=== PATIENT | female | born 1935 | race Two or more races ===

== ENCOUNTER 2019-11-24 09:06 | Inpatient (IN) | payer SELFPAY ==
[~2019-11-24] VITALS: Ht 149.9 cm; Wt 46.7 kg
[2019-11-24 09:24] VITALS: Ht 149.9 cm; Wt 46.7 kg
--- NOTE | 2019-11-24 09:38 | NUR ---
PT BIB DAUGHTER C/O LEFT HIP PAIN S/P FALL 0200. PER PT "I FELL OUT OF MY BED AND I THINK I HIT MY HEAD". PT DENIES ANY ALOC N/V/D OR FURTHER INJURY AT THIS TIME. PT IS AAOX4, RESP E/U, GERMAN SPEAKING. MD QUINTANILLA BEDSIDE FOR EVAL. SIDE RAILS UP X2 FOR SAFTEY. PLEACED ON FULL CM, NSR NOTED. AWAITING FURTHER ORDERS.
[2019-11-24 09:48] LABS: BASOPHIL % 0.1 % (0-2); PLATELET COUNT 250 x10^3mcL (130-400)
--- NOTE | 2019-11-24 09:54 | NUR ---
MEDICATED PT PER MD ORDERS, PLEASE SEE EMR. WILL CONTINUE TO MONITOR.
--- NOTE | 2019-11-24 09:54 | NUR ---
XRAY AT BEDSIDE FOR XRAY OF CHEST AND LEFT HIP. WILL CONTINUE TO MONITOR.
[2019-11-24 10:28] LABS: ALBUMIN 4.1 g/dL (3.4-5.0); ALKALINE PHOSPHATASE 59 U/L (46-116); ALT/SGPT 35 U/L (14-59); AST/SGOT 17 U/L (15-37); CALCIUM 8.9 mg/dL (8.5-10.1); CARBON DIOXIDE 23.9 mmol/L (21-32); CHLORIDE SERUM 86 mmol/L (98-107); CREATININE SERUM 0.9 mg/dL (0.6-1.0); GLUCOSE SERUM 259 mg/dL (74-106); TOTAL PROTEIN, SERUM 7.7 g/dL (6.4-8.2)
[2019-11-24 10:39] LABS: SODIUM SERUM 120 mmol/L (136-145)
[2019-11-24] MEDS ORDERED: FORTAMET500 M1 PO (11:24)
--- NOTE | 2019-11-24 11:29 | NUR ---
PT NOTED SLEEPING IN POSITION OF COMFORT IN ER GURNEY, RESP E/U, VSS, WILL CONTINUE TO MONITOR.
[2019-11-24 11:43] LABS: MAGNESIUM 1.6 mg/dL (1.8-2.4); PHOSPHOROUS 3.3 mg/dL (2.5-4.9)
[2019-11-24 11:45] LABS: T3 TOTAL 0.82 ng/mL
[2019-11-24 11:46] LABS: CHOLESTEROL/HDL RATIO 4.1
[2019-11-24 11:50] LABS: FREE T4 1.09 ng/dL (0.76-1.46); FREE THYROXINE INDEX 2.5 ug/dL (1.4-4.5); T4(THYROXINE) 7.6 ug/dL (4.7-13.3)
[2019-11-24] MEDS ORDERED: [UNRECOGNIZED DRUG - OTHER] IO (12:18)
[2019-11-24] MEDS ORDERED: [UNRECOGNIZED DRUG - OTHER] IO (12:19)
[2019-11-24 13:35] VITALS: BP 138/64
--- NOTE | 2019-11-24 13:46 | NUR ---
RECEIVED PT FROM ER, PT ADMIT FOR LEFT HIP FX, PT IS A/O X4, VERBAL RESPONSIVE. LUNG SOUND CLEAR BILATERAL, NO COUGH, NO SOB. PT DENY ANY CHEST PAIN OR DISCOMFORT, BOWEL SOUND PRESENT ALL 4 QUARANTS, NO DISTENTION, NO TENDER. PEDAL PULSE PRESENT BOTH FEET, NO EDEMA, LEFT LEG SPASM NOTED. PT DENY ANY PAIN AT LEFT HIP AT THIS MOMENT, IV AT LEFT FA, NO LEAKING, NO INFILTRATION. ALL ADLS ASSIST ALL NEED MET, CALL LIGHT IN REACH, WILL CONTINUE TO MONITOR.
--- NOTE | 2019-11-24 14:30 | NUR ---
RECEIVED PATIENT FROM RESOURCE NURSE, ALERT AND ORIENTED X4, [place] SPEAKING, ABLE TO VERBALIZE NEEDS, DENIES PAIN, LUNG SOUNDS CLEAR, ON RA, VS WNL, BED BOUND DUE TO L HIP FRACTURE, PATIENT PLEASANT ANT COOPERATIVE
[2019-11-24 16:25] VITALS: BP 142/66
--- NOTE | 2019-11-24 19:00 | NUR ---
PATIENT RESTING IN BED, NO C.O PAIN OR DISOCMFORT, ASSITED TO USE BED CARTER, NO OTHER CONCERNS AT THIS TIME, BRADEN ENDORSE CARE TO PM NURSE
--- NOTE | 2019-11-24 19:50 | NUR ---
RECEIVED PATIENT FROM DAY NURSE. MED-SURG PATIENT. PATIENT RESTING IN BED, A/O X4, ALBANIAN SPEAKER. BREATHING EVEN AND UNLABORED, ON ROOM AIR. ABD SOFT AND ROUND. NO EDEMA NOTED. USES BED CARTER TO VOID. GENERALIZED WEAKNESS, WHEELCHAIR @ BEDSIDE. ADMITTED FOR LEFT HIP FX, SCHEDULED FOR L HIP OPEN REDUCATION INTERNAL FX SURGERY TOMORROW, WILL BE NPO AFTER MIDNIGHT, PATIENT VERBALIZED UNDERSTANDING, NO REDNESS OR SWOLLEN NOTED @ L HIP. DAY NURSE STATED THAT DR. MARION HAS ALREADY DISCUSSED PROCEDURE WITH PATIENT, AND HAD ENDORSED FOR SIGNATURE FOR INFORMED CONSENT FORM. C/O OF LEFT HIP PAIN LEVEL 7/10, WILL GIVE MORPHINE PRN PER EMAR. IV LFA, INTACT AND INFUSING NS @ 125OML/HR. CALL LIGHT WITHIN REACH, BED IN LOWEST POSITION.
[2019-11-24 20:40] VITALS: BP 126/61
[2019-11-24 20:58] LABS: CALCIUM 8.6 mg/dL (8.5-10.1); CARBON DIOXIDE 26.2 mmol/L (21-32); CHLORIDE SERUM 94 mmol/L (98-107); CREATININE SERUM 0.8 mg/dL (0.6-1.0); GLUCOSE SERUM 164 mg/dL (74-106); POTASSIUM SERUM 3.6 mmol/L (3.5-5.1); SODIUM SERUM 129 mmol/L (136-145)
--- NOTE | 2019-11-24 23:35 | NUR ---
PATIENT WILL BE NPO AFTER MIDNIGHT, THERE IS CURRENTLY NO NPO ORDER @ THIS TIME. PATIENT IS SCHEDULED TO HAVE HIP SX TMRW, AND HAS NO CHG WIPE BATH ORDER @ THIS TIME. MADE A NOTE REQUESTING DR. GRANADO TO PLACE ORDERS FOR NPO AND CHG WIPE BATH.
--- NOTE | 2019-11-25 00:04 | NUR ---
PATIENT RESTING IN BED, WITH EYES CLOSED. EVEN CHEST RISE AND FALL. SHOWS NO SIGN OF PAIN OR DISTRESS. CURRENTLY NPO FOR UPCOMING SURGERY LATER TODAY. CALL LIGHT WITHIN REACH, BED IN LOWEST POSITION. WILL CONTINUE TO MONITOR.
[2019-11-25 05:13] VITALS: BP 122/62
--- NOTE | 2019-11-25 05:30 | NUR ---
SPOKE WITH DR. GRANADO REGARDING ORDERS FOR NPO AND CHG WIPE BATH, SHE STATED THAT SHE WILL PLACE ORDERS FOR THESE.
[2019-11-25 06:49] LABS: CALCIUM 7.7 mg/dL (8.5-10.1); CHLORIDE SERUM 99 mmol/L (98-107); CREATININE SERUM 0.6 mg/dL (0.6-1.0); GLUCOSE SERUM 113 mg/dL (74-106); POTASSIUM SERUM 3.6 mmol/L (3.5-5.1); SODIUM SERUM 131 mmol/L (136-145)
--- NOTE | 2019-11-25 06:50 | NUR ---
PATIENT RESTING IN BED, BREATHING EVEN AND UNLABORED, DENIES PAIN AND SOB. NO SIGNIFICANT CHANGES DURING SHIFT, SCHEDULED FOR L HIP SURGERY LATER TODAY, HAS BEEN NPO SINCE MIDNIGHT. NO REDNESS OR SWOLLEN NOTED @ L HIP. NO SIGNIFICANT CHANGES DURING SHIFT, ALL NEEDS MET, AND SAFETY PRECAUTIONS MAINTAINED THROUGHOUT SHIFT. WILL ENDORSE CARE TO NURSE.
[2019-11-25 06:51] LABS: BASOPHIL % 0.4 % (0-2); PLATELET COUNT 217 x10^3mcL (130-400); RED CELL DISTRIBUTION WIDTH 14.1 % (11.5-14.5)
--- NOTE | 2019-11-25 07:56 | NUR ---
RECIEVED REPORT FROM NOC NURSE. PATIENT CURRENTLY OBSERVED RESTING IN BED. RESPIRATION EVEN AND UNLABORED WITH SYMMETRICAL CHEST RISE AND FALL. IV TO THE LFA CURRENTLY INFUSING NS AT 125cc/HOUR. PATIENT IS CURRENTLY NPO SHE IS SCHEDULED TO HAVE LEFT ORIF SURGERY LATER TODAY. CONSENT OBTAINED BY [facility] NURSE. PATIENT SPOKE WITH SURGEON AND AGREES TO PROCEDURE. FALL PRECAUTIONS CURRENTLY IN PLACE. CALL LIGHT WITHIN REACH. WILL CONTINUE TO PROVIDE CARE FOR PATIENT.
[2019-11-25 09:05] VITALS: BP 134/59
[2019-11-25 12:09] VITALS: BP 124/61
--- NOTE | 2019-11-25 12:25 | NUR ---
Discount pharmacy card and list to low cost medical clinics given to patient.
[2019-11-25 14:22] VITALS: BP 146/70
--- NOTE | 2019-11-25 14:27 | NUR ---
PATIENT RETRIEVED FOR LEFT ORIF SURGERY. PREOP VITAL SIGNS STABLE.
--- NOTE | 2019-11-25 16:37 | NUR ---
PATIENT STILL IN SURGERY FOR LEFT ORIF PROCEDURE.
--- NOTE | 2019-11-25 17:22 | NUR ---
RECIEVED REPORT FROM OR NURSE PAMELA. LEFT ORIF SUCCESSFUL. VITAL SIGNS STABLE POST OP. PULSE : 74, SPO2: 97% ON ROOM AIR. RR: 14, B/P: 153/64. INCISION SITE CLOSED WITH SUTURES, DERMABOND. 50ml ESTIMATED BLOOD LOSS. 900ml LR INFUSED. PATIENT CURRENTLY STILL IN PACU AWAKENING FROM ANESTHETIC.
--- NOTE | 2019-11-25 17:58 | NUR ---
RECIEVED PATIENT FROM OR NURSE CORDON. XRAY CURRENTLY IN ROOM PERFORMING POSTOPERATIVE XRAY ON HIP AND PELVIS. VITAL SIGNS POST OP STABLE. CURRENT VITAL SIGNS: PULSE : 79, SPO2: 94% ON ROOM AIR, RR, 14, BLOOD PRESSURE: 163/71, TEMPERATURE 97.6, PAIN 4/1O TO LEFT HIP AREA.
--- NOTE | 2019-11-25 18:21 | NUR ---
PATIENT CURRENTLY OBSERVED RESTING IN BED. PATIENT REPORTS 10/10 PAIN TO LEFT HIP. MORPHINE ADMINSITERED FOR PAIN PER EMAR AND PHYSICIAN RECOMMENDATIONS. NS CURRENTLY INFUSING TO LEFT FORARM AT 125cc/HOUR. THREE SURGICAL INCISIONS TO LEFT HIP CLOSED WITH SUTURES AND DERMABOND- PICTURES IN CHART. POSTOPERATIVE XRAY PERFORMED AT BEDSIDE. VITAL SIGNS POST OP STABLE AND DOCUMENTED. FALL PRECAUTIONS IN PLACE. BED IN THE LOWEST POSITION. THREE SIDE RAILS RAISED. BED ALARM ACTIVATED. WILL ENDORSE ALL FURTHER CARE TO THE NOC NURSE.
--- NOTE | 2019-11-25 18:29 | NUR ---
P.T. NOTES HOLD P.T. LISA, PER RN, Pt JUST RETURNED FROM O.R.; CALL MARIEE, PHONE, TABLE IN REACH, BED ALARM ON, SUNGLASSES ON, NURSE CLOSED WINDOW SHADE & LIGHTS OFF.
--- NOTE | 2019-11-25 19:10 | NUR ---
RECEIVED REPORT FROM BOLIVAR GÓMEZ. PT EATING DINNER AT THIS TIME. PT IS AAOX4 AND BELARUSIAN SPEAKING ONLY. PT DENIES WHYTE/DIZZINESS. PT IS MED-SURG AND DENIES CP/PRESSURE. PT PULSES PALPABLE AND CAP REFILL <3 SEC. PT LUNG SOUNDS CTA ON RA WITH E/U BREATHING. PT DENIES SOB OR RESP DISTRESS. PT ABD SOFT/NONDISTENDED WITH ACTIVE BS X4. PT DENIES N/V/D/C. PT VOIDS FREELY WITH BRP. PT 11/25/19 S/P LEFT HIP ORIF. PT HAS INCISIONS WITH SCREW, SUTURES, DERNABOND, AND TEGADERM DRSG, CDI. PT DENIES ANY S/S OF PAIN OR DISCOMFORT AT THIS TIME. PT IV TO LFA 20G PATENT AND INTACT. NS INFUSING WELL AT 125ML/HR. CALL LIGHT WITHIN REACH. BED IN LOWEST POSITION. SIDE RAILS X2 UP. WILL CONTINUE TO MONITOR.
--- NOTE | 2019-11-25 20:41 | NUR ---
ERIKA (DAUGHTER), CALLED TO TALK WITH PT. TRANSFERRED CALL TO PT ROOM AND PT IS TALKING WITH DAUGHTER. CALL LIGHT WITHIN REACH. BED IN LOWEST POSITION. SIDE RAILS X2 UP. WILL CONTINUE TO MONITOR.
[2019-11-25 20:50] VITALS: BP 106/62
--- NOTE | 2019-11-25 21:55 | NUR ---
PT AWAKE AND RESTING COMFORTABLY IN BED. PT DENIES ANY ACUTE DISTRESS AT THIS TIME. CALL LIGHT WITHIN REACH. BED IN LOWEST POSITION. SIDE RAILS X2 UP. ALL NEEDS MET AT THIS TIME. WILL CONTINUE TO MONITOR.
--- NOTE | 2019-11-26 00:58 | NUR ---
PT RESTING COMFORTABLY WITH EYES CLOSED, EASILY AROUSABLE. NO ACUTE DISTRESS NOTED. PT BREATHING E/U ON RA. PT IV PATENT AND INTACT. NS INFUSING WELL AT 125ML/HR. ALL NEEDS MET AT THIS TIME. CALL LIGHT WITHIN REACH. BED IN LOWEST POSITION. SIDE RAILS X2 UP. WILL CONTINUE TO MONITOR.
--- NOTE | 2019-11-26 02:47 | NUR ---
PT RESTING COMFORTABLY WITH EYES CLOSED, EASILY AROUSABLE. PT BREATHING E/U ON RA. NO ACUTE DISTRESS NOTED AT THIS TIME. ALL NEEDS MET AT THIS TIME. NS INFUSING WELL AT 125ML/HR. CALL LIGHT WITHIN REACH. BED IN LOWEST POSITION. SIDE RAILS X2 UP. WILL CONTINUE TO MONITOR.
--- NOTE | 2019-11-26 04:42 | NUR ---
PT RESTING COMFORTABLY AT THIS TIME WITH EYES CLOSED, EASILY AROUSABLE. NO ACUTE DISTRESS NOTED. PT DENIES ANY S/S OF PAIN OR DISCOMFORT. PT BREATHING E/U. NS INFUSING WELL AT 125ML/HR. WILL CONTINUE TO MONITOR.
[2019-11-26 05:34] VITALS: BP 123/47
--- NOTE | 2019-11-26 05:52 | NUR ---
PT RESTED COMFORTABLY WITH EYES CLOSED, EASILY AROUSABLE. NO ACUTE DISTRESS NOTED DURING THE SHIFT. PT COMPLIED WITH NURSING CARE DURING THE SHIFT. COMFORT AND SAFETY MEASURES MAINTAINED. ALL QUESTIONS AND CONCERNS ADDRESSED. CALL LIGHT WITHIN REACH. BED IN LOWEST POSITION. SIDE RAILS X2 UP. WILL ENDORSE TO DAY SHIFT NURSE.
[2019-11-26 07:12] LABS: BASOPHIL % 0.2 % (0-2); PLATELET COUNT 197 x10^3mcL (130-400); RED CELL DISTRIBUTION WIDTH 14.9 % (11.5-14.5)
[2019-11-26 07:20] LABS: CALCIUM 8.1 mg/dL (8.5-10.1); CARBON DIOXIDE 22.8 mmol/L (21-32); CHLORIDE SERUM 101 mmol/L (98-107); CREATININE SERUM 0.7 mg/dL (0.6-1.0); GLUCOSE SERUM 148 mg/dL (74-106); POTASSIUM SERUM 4.1 mmol/L (3.5-5.1); SODIUM SERUM 134 mmol/L (136-145)
--- NOTE | 2019-11-26 07:20 | NUR ---
RECIEVED PT FROM PM NURSE. PT IN BED RESTING AWARE OF CHANGE OF SHIFT.
--- NOTE | 2019-11-26 07:21 | NUR ---
ENDORSED CARE TO MORENITA GÓMEZ. ALL QUESTIONS AND CONCERNS ANSWERED.
[2019-11-26 08:12] VITALS: BP 146/57
--- NOTE | 2019-11-26 12:00 | NUR ---
NOTICED PTS IV WAS INFILTRATING. FLUIDS WERE STOPPED AND IV WAS REMOVED. PT DID NOT REPORT PAIN. NEW IV WAS INSERTED ON RIGHT FOREARM 20G. PT TOLERATED WELL. NEW IV INFUSING WELL NO REDNESS OR SWELLING.
[2019-11-26 12:08] VITALS: BP 130/51
--- NOTE | 2019-11-26 15:18 | NUR ---
PT IN BED RESTING. PT IN NO DISTRESS DENIES PAIN AT THIS TIME. PT EVALUATED PT, PROVIDED PT WITH WALKER AND SAID PT WAS ONLY ABLE TO TAKE A FEW STEPS. PT IS IN BED RESTING NOW AND HAS NO CONCERNS.
[2019-11-26 16:12] VITALS: BP 127/50
--- NOTE | 2019-11-26 18:42 | NUR ---
PT IN BED RESTING, PT HAS NO PAIN OR CONCERNS AT THIS TIME. PT AWARE OF CHANGE OF SHIFT SOON. PT ENCOURAGED TO USE CALL LIGHT IF ASSISTANCE IS NEEDED.
--- NOTE | 2019-11-26 19:48 | NUR ---
RECEIVED PT SITTING UP IN BED, TALKING ON PHONE. PT IS AAOX4. DENIES WHYTE. [place] B/L. BREATHING IS EVEN AND UNLABORED ON RA. LUNG SOUNDS CTA. DENIES SOB. ABD IS SOFT AND NONDISTENDED. DENIES N/V/D/C. VOIDS FREELY. DENIES DYSURIA. GENERALIZED WEAKNESS TO BLE AND L SIDE S/P ORIF L HIP. L HIP SURIGICAL INCISION WITH SUTURES, DERMABOND, AND TEGADERM, CDI. DENIES ANY PAIN AT THIS TIME. IV TO RFA PATENT AND INTACT. NO ERYTHEMA NOTED. BED IN LOWEST POSITION. CALL LIGHT WITHIN REACH. WILL CONTINUE TO MONITOR.
[2019-11-26 20:15] VITALS: BP 129/45
--- NOTE | 2019-11-26 22:00 | NUR ---
ROUTINE MEDICATIONS ADMINISTERED AND TOLERATED WELL. NO ACUTE DISTRESS NOTED. BREATHING IS EVEN AND UNLABORED ON RA. NO RESP DISTRESS NOTED. MORPHINE ADMINISTERED PER AUG ORDER FOR 12/31 PAIN TO L SURGICAL SITE. WILL REASSESS AND CHECK EFFECTIVENESS. PLACED PT ON BED CARTER AT THIS TIME. BED IN LOWEST POSITION. CALL LIGHT WITHIN REACH. WILL CONTINUE TO MONITOR.
--- NOTE | 2019-11-27 | NUR ---
PT RESTING COMFORTABLY. BREATHING IS EVEN AND UNLABORED ON RA. NO RESP DISTRESS NOTED. WILL CONTINUE TO MONITOR.
--- NOTE | 2019-11-27 01:24 | NUR ---
ASSISTED PT TO BED CARTER. DENIES ANY PAIN AT THIS TIME. BREATHING IS EVEN AND UNLABORED ON RA. NO RESP DISTRESS. WILL CONTINUE TO MONITOR.
--- NOTE | 2019-11-27 02:57 | NUR ---
PT C/O 12/01 SURGICAL SITE PAIN. MEDICATED WITH [place] PRN PER AUG ORDER. WILL REASSESS AND CHECK EFFECTIVENESS. PLACE PT ON BED CARTER AT THIS TIME. WILL CONTINUE TO MONITOR.
[2019-11-27 05:40] VITALS: BP 109/44
--- NOTE | 2019-11-27 05:45 | NUR ---
PT SLEPT COMFORTABLY THROUGHOUT THE NIGHT WITH NO ACUTE EVENTS OCCURRING DURING THE SHIFT. COMFORT AND SAFETY MEASURES MAINTAINED. ALL NEEDS ASSESSED AND ATTENDED TO. WILL CONTINUE TO MONITOR AND ENDORSE CARE TO DAY SHIFT NURSE.
--- NOTE | 2019-11-27 07:00 | NUR ---
RECIEVED PT RESTING IN BED WITH NO C/O PAIN OR DISTRESS. A/O X4 WITH NO WHYTE OR DIZZINESS. LUNGS CTAB WITH NO SOB. LEFT HIP DRESSING CDI. NS 125ML/HR RUNNING IN RFA, CDI AND PATENT. SAFETY PRECAUTIONS IN PLACE, CALL LIGHT WITHIN REACH, WILL MONITOR.
--- NOTE | 2019-11-27 08:58 | NUR ---
MORPHINE GIVEN PER EMAR FOR C/O 12/31 LEFT LEG PAIN. WILL REASSESS.
[2019-11-27] MEDS ORDERED: GOOD SENSE OMEP20 MG PO (09:02)
[2019-11-27] MEDS ORDERED: NATURE'S BLEN2000 IU PO (09:04)
[2019-11-27] MEDS ORDERED: NORCO1 TA2 PO (09:05)
[2019-11-27] MEDS ORDERED: COLACE100 MG PO (09:05)
[2019-11-27 09:06] VITALS: BP 102/51
--- NOTE | 2019-11-27 12:07 | NUR ---
PHYSICAL THERAPY DAILY NOTES CO-SIGN All documentation done by the [employer] Executive Director for 11/27/19 has been reviewed. I agree with the documentation. Reviewed/Co-Signed by: Ulises Youssef PT Documentation Done by: MELECIO MENDEZ, STAFF CLIMATE SCIENTIST
[2019-11-27 12:33] VITALS: BP 156/68
[2019-11-27 14:27] VITALS: BP 156/68
--- NOTE | 2019-11-27 16:07 | NUR ---
PT STABLE TO DISCHARGE PER MD ORDER. ALL DISCHARGE INSTRUCTIONS, EDUCATION, AND PRESCRIPTIONS GIVEN TO PT AND DAUGHTER ERIKA, BOTH VERBALIZE UNDERSTANDING. IV REMOVED WITH CATHETER INTAQCT, NO REDNESS OR INFLAMMATION NOTED TO SITE. ID BAND REMOVVED FROM PT ARM. PT ESCORTED DOWN TO LOBBY VIA WC BY [employer] DRILLING MACHINE OPERATOR WITH ALL PERSONAL BELONGINGS IN HAND.
== END 2019-11-27 16:08 | disposition home or self-care (01) | DRG 481 ==
LOC: ED 09:06 → MU 10:55
PROVIDERS: Emergency Medicine; Family Medicine; Orthopaedic Surgery; ADMIT Internal Medicine; ATTEND Internal Medicine
PROC: 0QS704Z Reposition Left Upper Femur with Internal Fixation Device, Open Approach (ICD-10-PCS; principal; 2019-11-25 15:00)
DX: S72.142A Displaced intertrochanteric fracture of left femur, initial encounter for closed fracture (principal); E87.1 Hypo-osmolality and hyponatremia; E11.9 Type 2 diabetes mellitus without complications; E78.00 Pure hypercholesterolemia, unspecified; M85.80 Other specified disorders of bone density and structure, unspecified site; W01.0XXA Fall on same level from slipping, tripping and stumbling without subsequent striking against object, initial encounter; E83.42 Hypomagnesemia; I10 Essential (primary) hypertension; Y93.89 Activity, other specified; Y92.89 Other specified places as the place of occurrence of the external cause; Y99.8 Other external cause status
CPT/HCPCS: 82962; 84439; 97116-GP; 97530-GP; G0378; J0690; J1170; J2270; J2405; J3010; J3475; J7030; J7060; Q0092